=== PATIENT | female | born 1975 | race Caucasian/White ===

== ENCOUNTER → 2019-07-30 | Outpatient (CLI) | payer MEDICARE, OTHER ==
[~2019-07-30] MED LIST: BUPR150T15 PO; CETI-17 PO; DIVA500T2 PO; DULO30CA2 PO; METF500T16 PO; NIAC500T PO; [UNRECOGNIZED DRUG - CODE] PO
--- NOTE | 2019-07-30 17:09 | RAD ---
MR of the left shoulder HISTORY: Left shoulder pain. TECHNIQUE: Routine multiplanar sequences are obtained. FINDINGS: The acromioclavicular joint is intact. Rotator cuff tendinosis. Deep linear articular side tear of the anterior supraspinatus tendon, at least 90% across. Measures about 1 cm AP diameter. There does appear to be a very thin layer of remaining bursal layer tissue overlying this defect, without evidence of a discrete through and through full-thickness rupture. No retraction. Trace fluid in the subdeltoid bursa. No evidence of labral tear. No para labral cyst. No acute articular cartilage defect. Biceps tendon is intact. No acute fracture. No aggressive bone destruction. Mild edema type signal at the greater tuberosity is likely reactive and secondary to rotator cuff arthropathy. IMPRESSION: Rotator cuff tendinosis. Deep linear articular side tear of the anterior supraspinatus tendon. Electronically signed by: Vik Lucas MD (07/30/2019 5:05 PM) [id number]
== END | disposition home or self-care (01) ==
LOC: MRI 15:01
DX: M75.102 Unspecified rotator cuff tear or rupture of left shoulder, not specified as traumatic (principal); M75.82 Other shoulder lesions, left shoulder
CPT/HCPCS: 73221